=== PATIENT | male | born 1970 | race African-American/Black ===

== ENCOUNTER 2019-10-03 15:07 | Emergency (ER) | payer OTHER ==
[2019-10-03 15:26] VITALS: BP 174/105; PULSE 97; TEMP 99; BMI 30.7
[2019-10-03] MEDS ORDERED: KETOROLAC TROMETHAMINE 60 MG/2 ML VIAL IM ONE (15:52)
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
== END 2019-10-03 18:27 | disposition home or self-care (01) ==
LOC: JERFT 15:07
CPT/HCPCS: 73562-TC-RT-FY; 73700-TC-RT; 99283-25

== ENCOUNTER 2020-04-07 06:56 | Day surgery (SDC) | payer OTHER ==
[2020-03-31 13:53] VITALS: BMI 29.8
[2020-04-07] MEDS ORDERED: EPINEPHrine 1:1,000 1 MG/1 ML - 30ML VIAL (INJECTION) ONE (07:13)
[2020-04-07] MEDS ORDERED: BUPIVACAINE HCL/PF 0.25% (2.5MG/ML) 10 ML VIAL ONE (07:13)
--- NOTE | 2020-04-07 07:38 | OP ---
Operative Note - Note: Operative Date: 04/07/20 Pre-Operative Diagnosis: Right medial and lateral meniscus tears Operation: Right knee arthroscopy with partial medial and partial lateral menisectomies with medial femoral condyle microfracture Post-Operative Diagnosis: Same as Pre-op Surgeon: Tank Ortiz Industrial Custodian: Nohemy Hyman Anesthesia: General Operative Report Dictated: Yes
[2020-04-07] MEDS ORDERED: PROPOFOL 20 ML ONE ×2 (07:48)
[2020-04-07] MEDS ORDERED: BUPIVACAINE HCL/PF 0.25% (2.5MG/ML) 10 ML VIAL IJ ONE (08:15)
[2020-04-07] MEDS ORDERED: EPHEDRINE SULFATE/0.9% NACL/PF 50 MG/10 ML SYRINGE NR ONE (08:31)
[2020-04-07] MEDS ORDERED: ONDANSETRON 4 MG/2 ML VIAL ONE (09:07)
[2020-04-07] MEDS ORDERED: LABETALOL HCL 5 MG/1 ML (100MG/20 ML VIAL) ONE (09:07)
[2020-04-07] MEDS ORDERED: oxyCODONE HCL 5 MG TABLET PO PRN (09:13)
[2020-04-07 09:15] VITALS: TEMP 98.5
[2020-04-07] MEDS ORDERED: LACTATED RINGERS SOLUTION 1,000 ML IV SCH (09:15)
[2020-04-07 10:46] VITALS: BP 176/93; PULSE 93
--- NOTE | 2020-04-08 09:26 | OP ---
DATE OF OPERATION: 04/07/2020 DATE OF DICTATION: 04/07/2020 PREOPERATIVE DIAGNOSIS: Right knee medial and lateral meniscus tears. POSTOPERATIVE DIAGNOSES: Right knee medial and lateral meniscus tears, medial femoral condyle chondromalacia. PROCEDURE: Right knee arthroscopy, partial medial, partial lateral meniscectomy, medial femoral condyle microfracture. ANESTHESIA: General. POSTOPERATIVE CONDITION: Stable. COMPLICATIONS: None. SURGEON: Tank Fuentes MD TURNSTILE COLLECTOR: Nohemy Hyman, physician embalmer assistant, whose skillful assistance was necessary for the safe and timely performance of this procedure. Ms. Hyman was able to provide limb positioning, drive the camera, as well as assist in the manipulation of arthroscopic instrumentation. INDICATION: This is a pleasant gentleman who keeps having knee pain. MRI demonstrated medial and lateral meniscus tearing. Treatment options including nonoperative versus operative management were reviewed. Operative risks were reviewed in detail including bleeding, infection, neurovascular injury, need for further surgery, postoperative pain and stiffness, progression of osteoarthritis. We discussed medical risks such as heart attack, stroke, DVT, PE, and . I addressed the use of perioperative antibiotics and DVT prophylaxis. I addressed the patient's questions and concerns. He voiced understanding and elected to proceed. PROCEDURE: Patient was brought to the operating room where patient was placed supine on the operating room table. Care was taken to pad all the bony prominences. The right lower extremity was prepped and draped in the usual sterile fashion. A perioperative dose of antibiotics was given, and the usual timeout procedure was performed. The portal sites were marked out. The portal sites were injected subcutaneously with 0.25% Marcaine. A lateral portal was established using an 11-blade. The arthroscope was then passed into the knee joint. Examination of the patellofemoral joint demonstrated some mild partial-thickness chondral loss on the patellar and trochlear surfaces. Passing the arthroscope into the notch demonstrated intact ACL and PCL. The arthroscope was now passed to the medial compartment. Medial portal was established under spinal needle localization. Examination of the medial femoral condyle demonstrated areas of diffuse partial-thickness chondral loss with unstable flaps on the posteromedial border of the condyle. The tibia surface demonstrated some mild partial-thickness chondral loss. The meniscus demonstrated a radial tear partial thickness along the root. Utilizing meniscal biter and shaver, this was debrided down to a stable base. Some of loose cartilage debrided. At the end of the procedure, a 0.062 K-wire was used to make multiple passes to stabilize some of the chondral fissuring noted on the medial femoral condyle. The lateral compartment was inspected. Here, there was a tear noted at the junction of the body and posterior horn of the lateral meniscus. There was also a tear noted at the root attachment site also. This was debrided using a shaver down to a stable base. The articular surface showed only mild superficial wear. The arthroscope was withdrawn from the joint at this point. The portals were sutured using 3-0 nylon. Sterile dressings were placed. The patient was extubated and transferred to the recovery room in stable condition. TANK FUENTES M.D. [id number] MTDD
== END 2020-04-07 10:40 | disposition home or self-care (01) ==
LOC: FASU 06:56
PROVIDERS: ATTEND Orthopaedic Surgery Sports Medicine
PROC: 0SBC4ZZ Excision of Right Knee Joint, Percutaneous Endoscopic Approach (ICD-10-PCS; 2020-04-07)
PROC: 0SQC4ZZ Repair Right Knee Joint, Percutaneous Endoscopic Approach (ICD-10-PCS; 2020-04-07)
PROC: 0SBC4ZZ Excision of Right Knee Joint, Percutaneous Endoscopic Approach (ICD-10-PCS; principal; 2020-04-07 07:51)
DX: S83.241A Other tear of medial meniscus, current injury, right knee, initial encounter (principal); S83.281A Other tear of lateral meniscus, current injury, right knee, initial encounter; M94.261 Chondromalacia, right knee; X58.XXXA Exposure to other specified factors, initial encounter; Y93.9 Activity, unspecified; Y92.9 Unspecified place or not applicable
CPT/HCPCS: 94760